=== PATIENT | female | born 1995 | race Caucasian/White ===

== ENCOUNTER 2022-11-22 02:18 | Emergency (ER) | payer OTHER, SELFPAY ==
[2022-11-22 02:25] VITALS: BP 148/91; PULSE 117; RESP 22; TEMP 36.4; O2SAT 95; BMI 27.8
--- NOTE | 2022-11-22 02:40 | DI.US.S_ITS ---
PROCEDURE: US PELVIC COMPLETE INDICATIONS: PAIN TECHNIQUE: Real-time scanning was performed of the pelvic organs, with image documentation. Additional endovaginal scanning was necessary due to incomplete visualization of the adnexal and endometrial structures by transabdominal scanning. COMPARISON: None. FINDINGS: Uterus: Uterus is anteverted and normal in size at 8.0 x 4.8 x 6.7 cm. The myometrium is homogeneous. The endometrium measures 2.0 mm combined thickness. Ovaries: The right ovary measures 1.9 x 3.2 x 1.8 cm, with a calculated ovarian volume of 5.6 cc. The left ovary measures 2.5 x 1.7 x 2.4 cm, with a calculated ovarian volume of 5.3 cc. The ovaries have a normal sonographic appearance. Less than 12 follicles can be seen in each ovary. No adnexal masses are seen. Other: No pathologic free abdominal or pelvic fluid. IMPRESSION: Unremarkable ultrasound of the pelvis Note: Final report is concordant with preliminary interpretation by [employer] Approved by: Villa Boateng M.D. on 11/22/2022 at 7:46
--- NOTE | 2022-11-22 02:49 | ED_ITS ---
HPI - General Adult General Chief complaint: Vaginal Bleeding Stated complaint: abd. pain/bleeding/ vomiting Time Seen by Provider: 11/22/22 02:38 Source: patient and family Mode of arrival: Wheelchair History of Present Illness HPI narrative: Patient is a 27-year-old female who is here for evaluation of lower abdominal pain and vaginal bleeding nausea and vomiting. Symptoms started in the past 24 hours. This is the period of time when it would be normal for her to have a menstrual cycle which says this is much worse than normal. No urinary symptoms. No change in bowel habits. Did take some Midol at home prior to arrival withou t any improvement. Related Data Allergies Allergy/AdvReac Type Severity Reaction Status Date / Time No Known Drug Allergies Allergy Verified 11/22/22 03:27 Review of Systems Constitutional Constitutional: Reports system reviewed and no additional complaints, except as documented Cardiovascular Cardiovascular: Reports system reviewed and no additional complaints, except as documented Gastrointestinal Gastrointestinal: Reports system reviewed and no additional complaints, except as documented Genitourinary Genitourinary: Reports system reviewed and no additional complaints, except as documented Patient History Social History Smoking Status: Never smoker Smoking Status: Never smoker Substance Use Type: does not use Exam Initial Vital Signs Initial Vital Signs: Vital Signs Temperature 97.6 F 11/22/22 02:25 Pulse Rate 117 H 11/22/22 02:25 Respiratory Rate 22 11/22/22 02:25 Blood Pressure 148/91 H 11/22/22 02:25 Pulse Oximetry 95 11/22/22 02:25 Oxygen Delivery Method 11/22/22 02:25 HENWV Head: normal to inspection and normocephalic Resp Effort & Inspection: normal respiratory effort Auscultation: clear to auscultation bilaterally Cardio Rate: regular rate Rhythm: regular rhythm GI Inspection: normal to inspection and non-distended Palpation: tender (Lower abdomen) Back/Spine/Pelvis Back: No CVA tenderness Skin General: no rashes or lesions noted Course Orders Ordered: ED Orders 11/22/22 02:40 US pelvic complete Stat 11/22/22 03:00 Basic Metabolic Panel Stat Complete Blood Count AUTO DIFF Stat Test Serum,Qual Stat Discontinued Medications Hydrocodone Bitart/Acetaminophen (Hydrocodone/Acet 5/325 Tablet) 1 tab PO NOW ONE Stop: 11/22/22 02:41 Last Admin: 11/22/22 03:09 Dose: 1 tab Documented By: BALDOMERO Ketorolac Tromethamine (Ketorolac 30 Mg/Ml Vial) 30 mg IV NOW ONE Stop: 11/22/22 02:51 Last Admin: 11/22/22 03:08 Dose: 30 mg Documented By: BALDOMERO Vital Signs Vital signs: Vital Signs - 8 hr 11/22/22 02:25 Temperature 97.6 F Pulse Rate 117 H Respiratory Rate 22 Blood Pressure 148/91 H Pulse Oximetry 95 Oxygen Delivery Method Room Air Medical Decision Making Lab Data Lab results reviewed: Yes I reviewed the patient's lab results. Result diagrams: 11/22/22 03:00 11/22/22 03:00 Labs: Lab Results 11/22/22 11/22/22 11/22/22 Range/Units 03:00 03:00 03:00 WBC 5.4 (4.5-11.0) X10^3/uL RBC 4.43 (4.0-5.2) X10^6/uL Hgb 13.0 (12.0-16.0) g/dL Hct 38.6 (36-46) % MCV 87.1 (80-100) fL MCH 29.3 (26-34) PG MCHC 33.6 (30-36) % RDW 14.1 (11.6-14.8) % Plt Count 208 (150-400) X10^3/uL Neut % (Auto) 56.5 (50-75) % Lymph % (Auto) 34.2 (25-40) % Candler % (Auto) 7.5 (3-14) % Eos % (Auto) 1.5 L (2-4) % Baso % (Auto) 0.3 (0-2) % Neut # (Auto) 3000 (0654-1937) /uL Lymph # (Auto) 1800 (5098-0900) /uL Candler # (Auto) 400 (0-900) /uL Eos # (Auto) 100 (0-450) /uL Baso # (Auto) 0 (0-100) /uL Sodium 140 (137-145) mmol/L Potassium 3.8 (3.4-5.1) mmol/L Chloride 108 H (98-107) mmol/L Carbon Dioxide 22 (22-32) mmol/L BUN 14 (7-17) mg/dL Creatinine 0.50 L (0.52-1.04) mg/dL Estimated GFR > 60 (>60) mL/min BUN/Creatinine Ratio 28.0 H (6-22) Glucose 121 H (70-100) mg/dL Calcium 8.5 (8.4-10.2) mg/dL Serum , Qual Negative (Negative) Imaging Data US - EQUAL OPPORTUNITY ASSISTANT: Radiologist's Impression: No abnormality of the uterus or ovaries is appreciated. Arterial flow is demonstrated within both ovaries. MDM Narrative Medical decision making narrative: Patient reports some improvement of symptoms after medications. Her ultrasounds and labs are unremarkable. I do feel that we can hold on a CT scan her now. Will discharge home with symptom control. She was given return precautions and follow-up instructions. She expressed understanding and agreement. Discharge Plan Departure Patient Disposition: Home Clinical Impression: Abdominal pain, Vaginal bleeding Instructions: DI for Vaginal Bleeding Activity Restrictions/Additional Instructions: I do recommend that you try to take an anti-inflammatory such as Motrin or Naprosyn. These medications have been shown to work fairly well with digital publishing specialist/menstrual cramps. Use the pain medication as needed for breakthrough pain. Return to the emergency department for any new or worsening symptoms.
[2022-11-22] MEDS: KETOROLAC 30 MG/ML VIAL IV (03:08)
[2022-11-22] MEDS: HYDROCODONE/ACET 5/325 TABLET 1 TAB PO (03:09)
[2022-11-22 03:15] LABS: Add Manual Diff / Slide Review NO; Basophils Absolute Auto 0 /uL (0-100); Basophils Percent Auto 0.3 % (0-2); Eosinophils Absolute Auto 100 /uL (0-450); Eosinophils Percent Auto 1.5 % (2-4); Hematocrit 38.6 % (36-46); Lymphocytes Absolute Auto 1800 /uL (1100-4500); Lymphocytes Percent Auto 34.2 % (25-40); Mean Corpuscular HGB Conc 33.6 % (30-36); Mean Corpuscular Hemoglobin 29.3 PG (26-34); Mean Corpuscular Volume 87.1 fL (80-100); Monocytes Absolute Auto 400 /uL (0-900); Monocytes Percent Auto 7.5 % (3-14); Neutrophils Absolute Auto 3000 /uL (1500-7000); Neutrophils Percent Auto 56.5 % (50-75); Platelet Count 208 X10^3/uL (150-400); Red Blood Cell Count 4.43 X10^6/uL (4.0-5.2); Red Cell Distribution Width 14.1 % (11.6-14.8); White Blood Cell Count 5.4 X10^3/uL (4.5-11.0)
[2022-11-22 03:19] LABS: Blood Urea Nitrogen 14 mg/dL (7-17); Calcium 8.5 mg/dL (8.4-10.2); Carbon Dioxide 22 mmol/L (22-32); Chloride 108 mmol/L (98-107); Estimated Glomerular Filt Rate > 60 mL/min (>60); Glucose 121 mg/dL (70-100); HEMOLYSIS 25 (0-50); Potassium 3.8 mmol/L (3.4-5.1); Sodium 140 mmol/L (137-145)
[2022-11-22 03:41] LABS: Pregnancy Test Serum,Qual Negative (Negative)
[2022-11-22] MEDS: HYDROCODONE/ACET 5/325 PREPACK 1 BOTTLE MISC (06:48)
== END 2022-11-22 06:56 | disposition home or self-care (01) ==
PROVIDERS: Emergency Provider Emergency Medicine
DX: R10.30 Lower abdominal pain, unspecified (principal); N93.9 Abnormal uterine and vaginal bleeding, unspecified; R11.2 Nausea with vomiting, unspecified
CPT/HCPCS: 36415; 76830; 76856; 80048; 84703; 85025; 93975; 96374; 99284; J1885